=== PATIENT | female | born 1950 | race Caucasian/White ===

== ENCOUNTER → 2017-09-07 | Outpatient (CLI) | payer OTHER, MEDICARE ==
[~2017-09-07] VITALS: Ht 154.9 cm; Wt 54.4 kg
[~2017-09-07] MED LIST: CALCIUM500 MG PO; CO Q-10100 MG PO; ESCITALOPRAM OX20 MG PO; FISH OIL 1,001000 M2 PO; LOSARTAN-HCTZ1 EACH PO; SIMVASTATIN10 MG PO; VITAMIN B-12500 MCG PO; VITAMIN D1000 UNI1 PO
--- NOTE | ~2017-09-07 | S ---
[facility] [address] [place] [address] SURGICAL PATH RPT PROCEDURE Name: ELIO DUGAN Room #: REG [facility] M.R.#: [id number] Admission: 09/07/17 Date of : 50 Discharge: Report #: [id number] Path Case #: [id number] PATHOLOGY REPORT DRAFT COLLECTION DATE: 09/07/2017 RECEIVED DATE: 09/08/2017 SPECIMEN(S) RECEIVED: Brigida
--- NOTE | ~2017-09-07 | P ---
[facility] [place] [address] PROCEDURE REPORT Name: ELIO DUGAN Room #: REG [facility]#: [id number] Admission: 09/07/17 Attend Phys: Reymundo Her MD Discharge: Date of : 50 Report #: [id number] THIS REPORT FOR: //name// CC: Reymundo Silverman MD BRIEF HISTORY: The patient is a 67-year-old woman with the development in the past 3 months of symptoms of sour taste in her mouth, frequent belching, vague abdominal discomfort and questionable dysphagia. She had a 30-day course of omeprazole without resolution of symptoms. PREOPERATIVE DIAGNOSES: Symptoms suggestive of reflux disease and dysphagia. POSTOPERATIVE DIAGNOSES: 1. Moderate erosive antral gastritis. 2. Small sliding type hiatus hernia. 3. Mild Schatzki ring. MEDICATIONS: Deep sedation with propofol per anesthesia. SPECIMEN: Biopsies of gastritis. ESTIMATED BLOOD LOSS: 3 mL. PROCEDURE: EGD with biopsy and Reyes dilation. FINDINGS: Prior to propofol sedation, procedure of upper endoscopy was discussed with the patient as well as potential risks, benefits, and complications. She indicates she understands and desires to proceed. With the patient in left lateral decubitus position, the [employer] video endoscope was inserted in the cervical esophagus under direct vision without difficulty. Examination of this organ through its entire length revealed normal esophageal mucosa down the squamocolumnar junction. No ulcers or erosions were seen. There was no evidence of Almanza mucosa. No mass lesions were seen. Intermittently, a mild Schatzki ring was seen and also intermittently a 2-cm sliding type hiatus hernia was noted. Scope was advanced in the stomach, was examined on end view as well as retroflexed views. There were multiple erosions in the antrum, but no ulcers were seen. No bleeding lesions were seen. Upon retroflexion, no mass lesions were seen. Biopsies obtained of the gastritis. The pylorus, duodenal bulb, and postbulbar sweep were all inspected and noted to be within normal limits. At that point, the scope was slowly withdrawn and careful circumferential views confirmed the above findings. The patient tolerated the procedure well. Following procedure, she was dilated with passage of a 50-Urdu [address] [address] PROCEDURE REPORT Name: ELIO DUGAN Room #: REG [facility]#: [id number] Admission: 09/07/17 Attend Phys: Reymundo Her MD Discharge: Date of : 50 Report #: [id number] dilator. There was no resistance. CONDITION OF THE PATIENT UPON DISCHARGE: Following procedure, the patient drowsy arousable and conversant and she will be discharged home when fully ambulatory. INSTRUCTIONS TO THE PATIENT AND FAMILY AT THE TIME OF DISCHARGE: She has symptoms suggestive of reflux disease. She did not respond to a trial of omeprazole. Therefore, we will have her take daily course of pantoprazole 40 mg twice daily for 4 weeks. If she has a good response, she may continue at lowest dose to control symptoms. If she does not have response, she may discontinue at that point in time. She did have a ring, she should return for dilation on an as needed basis due to symptoms of dysphagia. She will follow up with Dr. Maira Silverman and return to see me as needed especially if her GI symptoms do not improve, also follow up on biopsies, which were obtained today. It is noted that the patient has a family history of esophageal cancer, there are no evidence of mass lesions or Almanza mucosa on exam today. <ELECTRONICALLY SIGNED> By: Reymundo Her MD 09/08/17 [id number] Reymundo Her MD /nt
== END | disposition home or self-care (01) ==
LOC: GI 08:05
DX: K25.9 Gastric ulcer, unspecified as acute or chronic, without hemorrhage or perforation (principal); K44.9 Diaphragmatic hernia without obstruction or gangrene; K22.2 Esophageal obstruction; Z79.899 Other long term (current) drug therapy; F32.9 Major depressive disorder, single episode, unspecified; F41.9 Anxiety disorder, unspecified; I10 Essential (primary) hypertension; E78.5 Hyperlipidemia, unspecified
CPT/HCPCS: 62110; 62900